=== PATIENT | male | born 1950 | race Caucasian/White ===

== ENCOUNTER 2017-02-11 11:32 | Inpatient (IN) | payer MEDICARE, OTHER ==
[~2017-02-11] VITALS: Ht 177.8 cm; Wt 131.5 kg
[2017-02-11 14:13] LABS: HEMOGLOBIN 15.3 gm/dl (14.0-17.5); RED BLOOD COUNT 5.16 M/UL (4.20-5.50); WHITE BLOOD COUNT 16.3 K/UL (4.5-11.0)
[2017-02-11] MEDS ORDERED: GLUCOPHAGE 500500 MG PO (20:41)
[2017-02-11] MEDS ORDERED: INCRUSE ELLI62.5 MCG INH (20:42)
[2017-02-11] MEDS ORDERED: JANUVIA100 MG PO (20:44)
[2017-02-11] MEDS ORDERED: HYDROCHLOROTHIA25 MG PO (20:45)
[2017-02-11] MEDS ORDERED: ISOSORBIDE MONO30 MG PO (20:47)
[2017-02-11] MEDS ORDERED: ASPIR 8181 MG PO (20:47)
[2017-02-11] MEDS ORDERED: LISINOPRIL10 MG PO (20:48)
[2017-02-11] MEDS ORDERED: COREG 3.125M3.125 MG PO (20:49)
[2017-02-11] MEDS ORDERED: PRAVASTATIN SOD40 MG PO (20:49)
[2017-02-11] MEDS ORDERED: GLUCOTROL 10 MG10 MG PO (20:50)
[2017-02-12 06:07] LABS: HEMOGLOBIN 13.9 gm/dl (14.0-17.5); RED BLOOD COUNT 4.73 M/UL (4.20-5.50); WHITE BLOOD COUNT 17.1 K/UL (4.5-11.0)
[2017-02-12 09:06] LABS: BUN/CREATININE RATIO 52 (0-10)
[2017-02-13 04:02] LABS: HEMOGLOBIN 13.1 gm/dl (14.0-17.5); RED BLOOD COUNT 4.47 M/UL (4.20-5.50); WHITE BLOOD COUNT 13.4 K/UL (4.5-11.0)
[2017-02-13 04:18] LABS: BUN/CREATININE RATIO 39 (0-10)
[2017-02-14 05:52] LABS: HEMOGLOBIN 12.1 gm/dl (14.0-17.5); RED BLOOD COUNT 4.18 M/UL (4.20-5.50); WHITE BLOOD COUNT 11.8 K/UL (4.5-11.0)
[2017-02-14 06:14] LABS: BUN/CREATININE RATIO 32 (0-10)
[2017-02-15 04:01] LABS: HEMOGLOBIN 13.5 gm/dl (14.0-17.5); RED BLOOD COUNT 4.56 M/UL (4.20-5.50); WHITE BLOOD COUNT 14.3 K/UL (4.5-11.0)
[2017-02-15 04:25] LABS: BUN/CREATININE RATIO 25 (0-10)
[2017-02-16 04:46] LABS: BUN/CREATININE RATIO 20 (0-10)
[2017-02-17 03:46] LABS: BUN/CREATININE RATIO 23 (0-10)
[2017-02-18 04:29] LABS: HEMOGLOBIN 13.9 gm/dl (14.0-17.5); RED BLOOD COUNT 4.71 M/UL (4.20-5.50); WHITE BLOOD COUNT 11.7 K/UL (4.5-11.0)
[2017-02-18 04:55] LABS: BUN/CREATININE RATIO 25 (0-10)
[2017-02-18] MEDS ORDERED: CEFUROXIME500 MG PO (11:20)
[2017-02-18] MEDS ORDERED: METOPROLOL TART25 MG PO (11:21)
[2017-02-18] MEDS ORDERED: SYMBICORT 160-1 INHA INH (11:23)
[2017-02-18] MEDS ORDERED: IPRAT-ALBUT 0.5-3 ML INH (11:23)
[2017-02-18] MEDS ORDERED: OXYGEN (11:24)
== END 2017-02-18 14:00 | disposition home health service (06) | DRG 871 ==
LOC: ER1 11:32 → CCU 15:55 → ZEROF 15:55 → CCU 20:39
PROVIDERS: Internal Medicine Infectious Disease; ADMIT Internal Medicine
PROC: 5A1945Z Respiratory Ventilation, 24-96 Consecutive Hours (ICD-10-PCS; principal; 2017-02-11)
PROC: 0BH17EZ Insertion of Endotracheal Airway into Trachea, Via Natural or Artificial Opening (ICD-10-PCS; 2017-02-11)
PROC: 02HV33Z Insertion of Infusion Device into Superior Vena Cava, Percutaneous Approach (ICD-10-PCS; 2017-02-11)
PROC: B548ZZA Ultrasonography of Superior Vena Cava, Guidance (ICD-10-PCS; 2017-02-11)
PROC: 0BJ08ZZ Inspection of Tracheobronchial Tree, Via Natural or Artificial Opening Endoscopic (ICD-10-PCS; 2017-02-13)
DX: A41.9 Sepsis, unspecified organism (principal); J13 Pneumonia due to Streptococcus pneumoniae; J96.22 Acute and chronic respiratory failure with hypercapnia; J96.21 Acute and chronic respiratory failure with hypoxia; G92 Toxic encephalopathy; E13.10 Other specified diabetes mellitus with ketoacidosis without coma; N17.9 Acute kidney failure, unspecified; M62.82 Rhabdomyolysis; J44.1 Chronic obstructive pulmonary disease with (acute) exacerbation; E66.2 Morbid (severe) obesity with alveolar hypoventilation; Z68.41 Body mass index [BMI] 40.0-44.9, adult; I45.2 Bifascicular block; T50.905A Adverse effect of unspecified drugs, medicaments and biological substances, initial encounter; I95.2 Hypotension due to drugs; T42.4X5A Adverse effect of benzodiazepines, initial encounter; E87.70 Fluid overload, unspecified; I10 Essential (primary) hypertension; E78.5 Hyperlipidemia, unspecified; Z87.891 Personal history of nicotine dependence; Z79.84 Long term (current) use of oral hypoglycemic drugs; Z79.82 Long term (current) use of aspirin; Z79.899 Other long term (current) drug therapy; Z83.3 Family history of diabetes mellitus
CPT/HCPCS: ECHO; 31500; 36415; 36600; 70450; 71010; 71020; 80048; 80053; 80202; 80307; 81001; 82009; 82140; 82550; 82553; 82803; 82962; 83036; 83605; 83874; 83880; 84132; 84146; 84443; 84484; 85025; 85027; 87040; 87070; 87077; 87086; 87186; 87205; 93005; 93306; 94002; 94003; 94640; 94660; 96361; 96374; 97110; 97116; 97530; 99285; C1751; C9113; G0480; J0696; J1650; J1815; J1940; J3370; J7030; J7040; J7050; J7070

== ENCOUNTER → 2017-03-25 | Outpatient (CLI) | payer MEDICARE, OTHER ==
[~2017-03-25] MED LIST: ASPIR 8181 MG PO; CEFUROXIME500 MG PO; COREG 3.125M3.125 MG PO; GLUCOPHAGE 500500 MG PO; GLUCOTROL 10 MG10 MG PO; HYDROCHLOROTHIA25 MG PO; INCRUSE ELLI62.5 MCG INH; IPRAT-ALBUT 0.5-3 ML INH; ISOSORBIDE MONO30 MG PO; JANUVIA100 MG PO; LISINOPRIL10 MG PO; METOPROLOL TART25 MG PO; OXYGEN; PRAVASTATIN SOD40 MG PO; SYMBICORT 160-1 INHA INH
== END ==
LOC: HEART 5 10:38
DX: J44.9 Chronic obstructive pulmonary disease, unspecified (principal); J96.90 Respiratory failure, unspecified, unspecified whether with hypoxia or hypercapnia; R06.02 Shortness of breath
CPT/HCPCS: 71020-FX; 94060; 94729

== ENCOUNTER → 2021-01-24 | Outpatient (CLI) | payer MEDICARE, OTHER ==
[~2021-01-24] MED LIST changes: +BYDUREON P2 MG/0.65 SQ; +HUMALOG 10100 UNITS/ SC; +LANTUS INS100 UTS/M1 SC; +LEVAQUIN750 MG PO; -LISINOPRIL10 MG PO; +LOPRESSOR 25 MG25 MG PO; +PRAVACHOL40 MG PO; -PRAVASTATIN SOD40 MG PO; +PRINIVIL20 MG PO; +SYMBICORT 16010.2 GM INH; +VENTOLIN HFA 66.7 GM INH
[2021-01-24 11:56] LABS: BUN/CREATININE RATIO 28 (0-10)
== END ==
LOC: ECHO 10:57
PROVIDERS: Internal Medicine Cardiovascular Disease
DX: I50.22 Chronic systolic (congestive) heart failure (principal); I42.8 Other cardiomyopathies; I42.0 Dilated cardiomyopathy; I07.1 Rheumatic tricuspid insufficiency
CPT/HCPCS: ECHO; 36415; 80048; 93306

== ENCOUNTER → 2021-07-24 | Outpatient (CLI) | payer MEDICARE, OTHER | LOC: HEART 5 10:06 | DX: I42.9 Cardiomyopathy, unspecified (principal); I77.819 Aortic ectasia, unspecified site; I51.7 Cardiomegaly; I50.9 Heart failure, unspecified | CPT/HCPCS: 93306 ==

== ENCOUNTER → 2022-01-12 | Outpatient (CLI) | payer MEDICARE, OTHER | LOC: ECHO 12:00 | DX: I50.22 Chronic systolic (congestive) heart failure (principal); I42.9 Cardiomyopathy, unspecified | CPT/HCPCS: ECHO; 93306 ==